=== PATIENT | male | born 1970 | race Caucasian/White ===

== ENCOUNTER 2018-07-12 09:02 | Emergency (ER) | payer SELFPAY ==
[2018-07-12] MEDS ORDERED: Dexamethasone 4 mg/ml Vial ONE (09:40)
== END 2018-07-12 09:53 | disposition home or self-care (01) ==
LOC: ERS 09:02
DX: J06.9 Acute upper respiratory infection, unspecified (principal); I10 Essential (primary) hypertension; F41.9 Anxiety disorder, unspecified; F32.9 Major depressive disorder, single episode, unspecified; F17.210 Nicotine dependence, cigarettes, uncomplicated; Z71.6 Tobacco abuse counseling
CPT/HCPCS: 87081; 87430; 99406; J1100

== ENCOUNTER 2021-12-11 10:36 | Emergency (ER) | payer OTHER ==
[~2021-12-11 10:36] MED LIST: Iopamidol-370 76% 500 ML 1 ML ONE
[2021-12-11 11:21] LABS: #Eosinphils 0.3 thou/uL (0.0-0.7); #Lymphocytes 2.4 thou/uL (1.20-3.40); #Neutrophils 11.3 thou/uL (1.40-6.50); %Basophils 0.2 % (0.0-1.0); %Eosinophils 1.7 % (0.0-10.0); %Lymphocytes 14.9 % (21.0-51.0); %Monocytes 12.5 % (0.0-10.0); %Neutrophils 70.7 % (42.0-75.0); Hemoglobin 13.1 g/dL (14.0-18.0); Mean Corpuscular HGB CONC 31.7 g/dL (32.0-36.0); Mean Corpuscular Hemoglobin 28.9 pg (27.0-31.0); Mean Corpuscular Volume 91.3 fL (78.0-98.0); Platelet Count 329 thou/uL (130-400); RBC Distribution Width 13.8 % (11.5-14.5); Red Blood Cell (RBC) Count 4.53 mill/uL (4.70-6.10); White Blood Cell (WBC) Count 15.9 thou/uL (4.8-10.8)
[2021-12-11 11:42] LABS: ALT (SGPT) 25 U/L (8-55); AST (SGOT) 16 U/L (5-34); Albumin 3.6 g/dL (3.5-5.0); Alkaline Phosphatase 147 U/L (40-110); Anion Gap 18 mmol/L (10-20); BUN (Urea Nitrogen) 9 mg/dL (8.9-20.6); Bilirubin, Total 0.5 mg/dL (0.2-1.2); Calc. Creatinine Clearance 0 mL/min (70-130); Calcium 9.3 mg/dL (7.8-10.44); Carbon Dioxide 20 mmol/L (22-29); Chloride 101 mmol/L (98-107); Globulin 3.9 g/dL (2.4-3.5); Glucose 93 mg/dL (70-105); Lipase 9 U/L (8-78); Potassium 4.3 mmol/L (3.5-5.1); Protein, Total 7.5 g/dL (6.0-8.3); Sodium 135 mmol/L (136-145)
[2021-12-11] MEDS ORDERED: Haloperidol Lactate 5 MG/ML VIAL ONE (12:30)
[2021-12-11] MEDS ORDERED: HYDROcodone/Acetaminophen 5/325 mg Tablet ONE (12:58)
== END 2021-12-11 13:04 | disposition home or self-care (01) ==
LOC: ERS 10:36
DX: J18.9 Pneumonia, unspecified organism (principal); R91.8 Other nonspecific abnormal finding of lung field; F17.210 Nicotine dependence, cigarettes, uncomplicated
CPT/HCPCS: 36415; 71045; 71260; 80053; 83605; 83690; 84484; 85025; 87040; 87077; 87149; 93005; 94760; 96374; J1630; Q9967

== ENCOUNTER 2022-02-02 13:20 | Inpatient (IN) | payer SELFPAY ==
[2022-02-02 14:12] LABS: White Blood Cell (WBC) Count 14.5 thou/uL (4.8-10.8)
[2022-02-02 14:13] LABS: #Eosinphils 0.1 thou/uL (0.0-0.7); #Lymphocytes 3.4 thou/uL (1.20-3.40); #Monocytes 1.6 thou/uL (0.11-0.59); #Neutrophils 9.3 thou/uL (1.40-6.50); %Eosinophils 0.9 % (0.0-10.0); %Lymphocytes 23.6 % (21.0-51.0); %Monocytes 11.2 % (0.0-10.0); %Neutrophils 64.2 % (42.0-75.0); Hemoglobin 12.3 g/dL (14.0-18.0); Mean Corpuscular HGB CONC 32.4 g/dL (32.0-36.0); Mean Corpuscular Hemoglobin 27.4 pg (27.0-31.0); Mean Corpuscular Volume 84.5 fL (78.0-98.0); Mean Platelet Volume 7.6 fL (7.4-10.4); Platelet Count 367 thou/uL (130-400); RBC Distribution Width 14.7 % (11.5-14.5)
[2022-02-02] MEDS ORDERED: Iopamidol-370 76% 500 ML 1 ML ONE (14:28)
[2022-02-02] MEDS ORDERED: Morphine 4 MG/ML VIAL ONE ×2 (14:36→19:22)
[2022-02-02] MEDS ORDERED: Ondansetron PF 4 MG/2 ML Vial ONE (14:37)
[2022-02-02] MEDS ORDERED: Aspirin Chewable 81 MG TAB ONE (14:37)
[2022-02-02 15:15] LABS: AST (SGOT) 11 U/L (5-34); Albumin 3.9 g/dL (3.5-5.0); Alkaline Phosphatase 110 U/L (40-110); Anion Gap 16 mmol/L (10-20); BUN (Urea Nitrogen) 9 mg/dL (8.9-20.6); Bilirubin, Total 0.5 mg/dL (0.2-1.2); Calc. Creatinine Clearance 0 mL/min (70-130); Carbon Dioxide 23 mmol/L (22-29); Chloride 102 mmol/L (98-107); Globulin 4.9 g/dL (2.4-3.5); Glucose 95 mg/dL (70-105); Potassium 4.4 mmol/L (3.5-5.1); Protein, Total 8.8 g/dL (6.0-8.3); Sodium 137 mmol/L (136-145)
[2022-02-02 15:16] LABS: ALT (SGPT) 9 U/L (8-55)
[2022-02-02 15:19] LABS: Calcium 13.2 mg/dL (7.8-10.44)
[2022-02-02 15:37] LABS: CK (CPK) 15 U/L (30-200); Lipase 5 U/L (8-78)
[2022-02-02] MEDS ORDERED: Dexamethasone 10 MG/ML VIAL ONE (19:22)
[2022-02-02] MEDS ORDERED: Ondansetron PF 4 MG/2 ML Vial IVP PRN (20:30)
[2022-02-02] MEDS ORDERED: Ondansetron ODT 4 MG TAB SL PRN (20:30)
[2022-02-02] MEDS ORDERED: Acetaminophen 325 MG TAB PO PRN (20:30)
[2022-02-02] MEDS ORDERED: Acetaminophen 650 MG Suppository PR PRN (20:54)
[2022-02-02] MEDS ORDERED: Zoledronic Acid 4 MG in Sodium Chloride 0.9% 100 ML IVPB SCH (21:00)
[2022-02-02] MEDS ORDERED: Piperacillin/Tazobactam 3.375 GM in Sodium Chloride 0.9% 100 ML IVPB SCH (22:00)
[2022-02-02] MEDS: Sodium Chloride 0.9% 1,000 ML IV SCH (22:31)
[2022-02-02] MEDS: Doxycycline 100 MG in Sodium Chloride 0.9% 100 ML IVPB SCH (22:31)
[2022-02-02 23:19] VITALS: BMI 25.0
[2022-02-02] MEDS: Morphine 4 MG/ML VIAL SLOW IVP PRN (23:42)
[2022-02-03] MEDS ORDERED: Piperacillin/Tazobactam 3.375 GM in Sodium Chloride 0.9% 100 ML IVPB SCH (02:00)
[2022-02-03 02:29] LABS: Bacteria/HPF None Seen HPF (None Seen); Bilirubin Negative (Negative); Blood, Urine Negative (Negative); Clarity Clear (Clear); Glucose, Urine (Dipstick) Normal (Negative); Ketone, Urine Negative (Negative); Leukocyte Negative Leu/uL (Negative); Nitrite Negative (Negative); Protein, Urine (Dipstick) Negative (Neg-Trace); RBC/HPF 0-3 HPF (0-3); Specific Gravity, Urine 1.011 (1.002-1.036); Squamous Epithelial 0-3 HPF (0-3); Urobilinogen Normal mg/dL (Less than 2); WBC/HPF 0-3 HPF (0-3)
[2022-02-03] MEDS: Morphine 4 MG/ML VIAL SLOW IVP PRN ×2 (04:22→22:18)
[2022-02-03] MEDS: Sodium Chloride 0.9% 1,000 ML IV SCH (05:20)
[2022-02-03] MEDS: Piperacillin/Tazobactam 3.375 GM in Sodium Chloride 0.9% 100 ML IVPB SCH ×2 (06:08→14:24)
[2022-02-03 06:31] LABS: #Lymphocytes 1.7 thou/uL (1.20-3.40); #Monocytes 0.7 thou/uL (0.11-0.59); #Neutrophils 8.1 thou/uL (1.40-6.50); %Basophils 0.4 % (0.0-1.0); %Eosinophils 0.1 % (0.0-10.0); %Lymphocytes 16.2 % (21.0-51.0); %Monocytes 6.2 % (0.0-10.0); Hemoglobin 10.5 g/dL (14.0-18.0); Mean Corpuscular HGB CONC 32.4 g/dL (32.0-36.0); Mean Corpuscular Hemoglobin 27.4 pg (27.0-31.0); Mean Corpuscular Volume 84.6 fL (78.0-98.0); Mean Platelet Volume 7.8 fL (7.4-10.4); Platelet Count 330 thou/uL (130-400); RBC Distribution Width 14.5 % (11.5-14.5); Red Blood Cell (RBC) Count 3.83 mill/uL (4.70-6.10); White Blood Cell (WBC) Count 10.5 thou/uL (4.8-10.8)
[2022-02-03 06:49] LABS: Anion Gap 10 mmol/L (10-20); BUN (Urea Nitrogen) 8 mg/dL (8.9-20.6); Calc. Creatinine Clearance 134 mL/min (70-130); Calcium 11.9 mg/dL (7.8-10.44); Carbon Dioxide 25 mmol/L (22-29); Chloride 103 mmol/L (98-107); Glucose 127 mg/dL (70-105); Potassium 4.3 mmol/L (3.5-5.1); Sodium 134 mmol/L (136-145)
[2022-02-03] MEDS ORDERED: Ondansetron PF 4 MG/2 ML Vial IVP PRN (08:07)
[2022-02-03 09:19] LABS: HIV (1/2) Antibody/Antigen Non-Reactive (NonReactive)
[2022-02-03] MEDS: methylPREDNISolone Sod Succ 40 MG VIAL IVP SCH (11:20)
[2022-02-03] MEDS: Doxycycline 100 MG in Sodium Chloride 0.9% 100 ML IVPB SCH (11:25)
[2022-02-03] MEDS: Enoxaparin Sodium 40 MG/0.4 ML SYRINGE SC SCH (11:26)
[2022-02-03 11:56] LABS: SARS-CoV-2 PCR by NAA Not Detected (NotDetected)
[2022-02-03] MEDS ORDERED: methylPREDNISolone Sod Succ/PF 125 MG/2 ML VIAL IVP SCH (14:45)
[2022-02-03] MEDS: Amoxicillin/Potassium Clav 875 MG TAB PO SCH (20:23)
[2022-02-04] MEDS: Amoxicillin/Potassium Clav 875 MG TAB PO SCH ×2 (10:18→21:26)
[2022-02-04] MEDS: methylPREDNISolone Sod Succ 40 MG VIAL IVP SCH (10:19)
[2022-02-04] MEDS: Enoxaparin Sodium 40 MG/0.4 ML SYRINGE SC SCH (10:19)
[2022-02-04] MEDS: Morphine 4 MG/ML VIAL SLOW IVP PRN (21:26)
[2022-02-05] MEDS: Amoxicillin/Potassium Clav 875 MG TAB PO SCH ×2 (10:23→20:50)
[2022-02-05] MEDS: Enoxaparin Sodium 40 MG/0.4 ML SYRINGE SC SCH (10:24)
[2022-02-05] MEDS: methylPREDNISolone Sod Succ 40 MG VIAL IVP SCH (10:24)
[2022-02-05] MEDS ORDERED: Morphine 2 MG/ML VIAL SLOW IVP PRN ×2 (20:54)
[2022-02-06] MEDS: Enoxaparin Sodium 40 MG/0.4 ML SYRINGE SC SCH (07:43)
[2022-02-06] MEDS: Amoxicillin/Potassium Clav 875 MG TAB PO SCH ×2 (07:57→20:31)
[2022-02-06] MEDS: methylPREDNISolone Sod Succ 40 MG VIAL IVP SCH (08:12)
[2022-02-06] MEDS ORDERED: ceFAZolin (BATCH) 2 GM/100 ML BAG ONE (11:31)
[2022-02-06] MEDS ORDERED: fentaNYL Citrate/PF 100 MCG/2 ML SYRINGE ONE (11:31)
[2022-02-06] MEDS ORDERED: Midazolam HCl 2 mg/2 ml Vial ONE (11:49)
[2022-02-06] MEDS ORDERED: PROPOFOL 200 MG/20 ML VIAL ONE (11:59)
[2022-02-06] MEDS ORDERED: Glycopyrrolate 0.2 MG/ML 5 ML SYRINGE ONE (11:59)
[2022-02-06] MEDS ORDERED: Rocuronium Bromide 10 MG/ML (10ML VIAL) ONE (11:59)
[2022-02-06] MEDS ORDERED: Lidocaine 1% PF 5 ML VIAL ONE (11:59)
[2022-02-06] MEDS ORDERED: Dexamethasone 20 MG/5 ML VIAL ONE (11:59)
[2022-02-06] MEDS ORDERED: Ondansetron PF 4 MG/2 ML Vial ONE (11:59)
[2022-02-06] MEDS ORDERED: EPINEPHrine 1 MG/10 ML Abboject SYRINGE ONE (12:46)
[2022-02-06] MEDS ORDERED: SUGAMMADEX SODIUM 200 MG/2 ML VIAL ONE (13:07)
[2022-02-06] MEDS ORDERED: Labetalol HCl 100 MG/20 ML VIAL ONE (13:15)
[2022-02-06] MEDS ORDERED: Amiodarone 450 MG in Dextrose 5% in Water 250 ML IVPB SCH (14:45)
[2022-02-06] MEDS ORDERED: ALPRAZolam 1 MG TAB PO PRN (17:13)
[2022-02-06] MEDS: Morphine 4 MG/ML VIAL SLOW IVP PRN ×2 (20:28→23:56)
[2022-02-07] MEDS: Morphine 4 MG/ML VIAL SLOW IVP PRN ×4 (04:03→20:06)
[2022-02-07] MEDS ORDERED: HYDROcodone/Acetaminophen 5/325 mg Tablet PO PRN (06:17)
[2022-02-07] MEDS: Amoxicillin/Potassium Clav 875 MG TAB PO SCH ×2 (07:37→20:07)
[2022-02-07] MEDS: HYDROcodone/Acetaminophen 5/325 mg Tablet PO PRN ×2 (07:37→11:44)
[2022-02-07] MEDS: Enoxaparin Sodium 40 MG/0.4 ML SYRINGE SC SCH (07:37)
[2022-02-07] MEDS: methylPREDNISolone Sod Succ 40 MG VIAL IVP SCH (07:38)
[2022-02-07] MEDS ORDERED: Docusate 100 MG CAP PO SCH (20:18)
[2022-02-08] MEDS: Morphine 4 MG/ML VIAL SLOW IVP PRN ×2 (03:03→08:47)
[2022-02-08] MEDS: HYDROcodone/Acetaminophen 5/325 mg Tablet PO PRN (04:47)
[2022-02-08] MEDS: Enoxaparin Sodium 40 MG/0.4 ML SYRINGE SC SCH (08:47)
[2022-02-08] MEDS: Amoxicillin/Potassium Clav 875 MG TAB PO SCH ×2 (08:47→21:59)
[2022-02-08] MEDS: methylPREDNISolone Sod Succ 40 MG VIAL IVP SCH (08:48)
[2022-02-08] MEDS ORDERED: Polyethylene Glycol 3350 17 GM Packet PO PRN (20:57)
[2022-02-08] MEDS ORDERED: Docusate Sodium 10 MG/1 ML Oral Suspension PO PRN (21:58)
[2022-02-09] MEDS ORDERED: Acetaminophen 325 MG TAB PO PRN (00:49)
[2022-02-09] MEDS ORDERED: guaiFENesin/DM ER PO PRN (00:50)
[2022-02-09 04:58] LABS: Anion Gap 11 mmol/L (10-20); BUN (Urea Nitrogen) 15 mg/dL (8.9-20.6); Calc. Creatinine Clearance 170 mL/min (70-130); Calcium 8.6 mg/dL (7.8-10.44); Carbon Dioxide 25 mmol/L (22-29); Chloride 106 mmol/L (98-107); Glucose 88 mg/dL (70-105); Sodium 138 mmol/L (136-145)
[2022-02-09 05:10] LABS: Hemoglobin 10.6 g/dL (14.0-18.0); Lymphocytes 29 % (21-51); MDiff Complete? YES; Mean Corpuscular HGB CONC 32.2 g/dL (32.0-36.0); Mean Corpuscular Hemoglobin 27.6 pg (27.0-31.0); Mean Corpuscular Volume 85.7 fL (78.0-98.0); Metamyelocyte 2 % (0-0); Monocytes 10 % (0-10); Myelocyte 1 % (0-0); Neutrophil 58 % (42-75); Platelet Count 315 thou/uL (130-400); Platelet Morphology Comment Appears Adequate; RBC Distribution Width 16.1 % (11.5-14.5); RBC Morphology Normal; Red Blood Cell (RBC) Count 3.83 mill/uL (4.70-6.10); White Blood Cell (WBC) Count 22.8 thou/uL (4.8-10.8)
[2022-02-09] MEDS: Enoxaparin Sodium 40 MG/0.4 ML SYRINGE SC SCH (09:03)
[2022-02-09] MEDS: methylPREDNISolone Sod Succ 40 MG VIAL IVP SCH (09:03)
[2022-02-09] MEDS: Amoxicillin/Potassium Clav 875 MG TAB PO SCH (09:03)
[2022-02-09 13:03] VITALS: BP 100/57; TEMP 98.4
== END 2022-02-09 12:45 | disposition home or self-care (01) | DRG 180 ==
LOC: EEVIPCON 13:20 → ERS 13:20 → T4-A 19:19 → 2NO 02-06 14:51
PROVIDERS: ADMIT Internal Medicine; ATTEND Internal Medicine
PROC: 0BB78ZX Excision of Left Main Bronchus, Via Natural or Artificial Opening Endoscopic, Diagnostic (ICD-10-PCS; principal; 2022-02-06)
PROC: 0B978ZZ Drainage of Left Main Bronchus, Via Natural or Artificial Opening Endoscopic (ICD-10-PCS; 2022-02-06)
PROC: 0W9B30Z Drainage of Left Pleural Cavity with Drainage Device, Percutaneous Approach (ICD-10-PCS; 2022-02-06)
PROC: 0BJ08ZZ Inspection of Tracheobronchial Tree, Via Natural or Artificial Opening Endoscopic (ICD-10-PCS; 2022-02-06)
DX: C34.02 Malignant neoplasm of left main bronchus (principal); J18.9 Pneumonia, unspecified organism; J44.1 Chronic obstructive pulmonary disease with (acute) exacerbation; J90 Pleural effusion, not elsewhere classified; J44.0 Chronic obstructive pulmonary disease with (acute) lower respiratory infection; E87.1 Hypo-osmolality and hyponatremia; Z20.822 Contact with and (suspected) exposure to COVID-19; F41.9 Anxiety disorder, unspecified; F32.A Depression, unspecified; F12.10 Cannabis abuse, uncomplicated; F17.210 Nicotine dependence, cigarettes, uncomplicated; E83.52 Hypercalcemia; E86.0 Dehydration; E11.9 Type 2 diabetes mellitus without complications; D64.9 Anemia, unspecified; I48.0 Paroxysmal atrial fibrillation; Z90.09 Acquired absence of other part of head and neck; Z98.890 Other specified postprocedural states; Z88.6 Allergy status to analgesic agent; Z79.51 Long term (current) use of inhaled steroids
CPT/HCPCS: 36415; 71045; 71260; 80048; 80053; 81001; 82550; 83690; 83880; 84484; 85025; 87389; 88112; 88305; 88341; 88342; 93005; 93010; 93306; 94640; 96374; 96375; 96376; J0171; J0690; J1100; J1650; J2250; J2270; J2405; J2543; J2704; J2920; J2930; J3489; J3490; J7050; J7620; Q9967; U0003; U0005

== ENCOUNTER 2022-04-10 13:09 | Inpatient (IN) | payer BC, SELFPAY ==
[~2022-04-10 13:09] MED LIST changes: +ISOVUE-370 76%-LOCM 1 ML ONE; -Iopamidol-370 76% 500 ML 1 ML ONE
[2022-04-10] MEDS ORDERED: Ondansetron PF 4 MG/2 ML Vial ONE (14:07)
[2022-04-10] MEDS ORDERED: Morphine 4 MG/ML VIAL ONE (14:07)
[2022-04-10 14:20] LABS: #Eosinphils 0.3 thou/uL (0.0-0.7); #Lymphocytes 2.4 thou/uL (1.20-3.40); #Monocytes 1.2 thou/uL (0.11-0.59); #Neutrophils 9.1 thou/uL (1.40-6.50); %Basophils 0.4 % (0.0-1.0); %Eosinophils 2.6 % (0.0-10.0); %Lymphocytes 18.5 % (21.0-51.0); %Monocytes 9.1 % (0.0-10.0); %Neutrophils 69.4 % (42.0-75.0); Hemoglobin 12.9 g/dL (14.0-18.0); Mean Corpuscular HGB CONC 31.7 g/dL (32.0-36.0); Mean Corpuscular Hemoglobin 28.9 pg (27.0-31.0); Mean Corpuscular Volume 91.2 fL (78.0-98.0); Mean Platelet Volume 8.5 fL (7.4-10.4); Platelet Count 298 thou/uL (130-400); RBC Distribution Width 15.9 % (11.5-14.5); Red Blood Cell (RBC) Count 4.47 mill/uL (4.70-6.10)
[2022-04-10 14:47] LABS: ALT (SGPT) 14 U/L (8-55); AST (SGOT) 10 U/L (5-34); Albumin 3.8 g/dL (3.5-5.0); Alkaline Phosphatase 97 U/L (40-110); Anion Gap 13 mmol/L (10-20); BUN (Urea Nitrogen) 11 mg/dL (8.9-20.6); Bilirubin, Total 0.2 mg/dL (0.2-1.2); CK (CPK) 18 U/L (30-200); Calc. Creatinine Clearance 0 mL/min (70-130); Carbon Dioxide 25 mmol/L (22-29); Chloride 103 mmol/L (98-107); Estimated GFR 110; Globulin 4.4 g/dL (2.4-3.5); Glucose 122 mg/dL (70-105); Potassium 3.8 mmol/L (3.5-5.1); Protein, Total 8.2 g/dL (6.0-8.3); Sodium 137 mmol/L (136-145)
[2022-04-10 14:54] LABS: Calcium 12.5 mg/dL (7.8-10.44)
[2022-04-10] MEDS ORDERED: Vancomycin 1 GM/200 ML BAG ONE (15:05)
[2022-04-10] MEDS ORDERED: Piperacillin/Tazobactam 4.5 GM VIAL ONE (15:05)
[2022-04-10 15:24] LABS: Bilirubin Negative (Negative); Blood, Urine Negative (Negative); Clarity Clear (Clear); Glucose, Urine (Dipstick) Normal (Negative); Ketone, Urine Negative (Negative); Leukocyte Negative Leu/uL (Negative); Nitrite Negative (Negative); Protein, Urine (Dipstick) Negative (Neg-Trace); Specific Gravity, Urine 1.014 (1.002-1.036); Urobilinogen Normal mg/dL (Less than 2); pH, Urine 6.5 (5.0-9.0)
[2022-04-10] MEDS ORDERED: Acetaminophen 325 MG TAB PO PRN (15:45)
[2022-04-10] MEDS ORDERED: Zoledronic Acid 4 MG in Sodium Chloride 0.9% 100 ML IVPB SCH (17:00)
[2022-04-10] MEDS: Morphine 2 MG/ML VIAL SLOW IVP PRN ×2 (18:18→22:33)
[2022-04-10] MEDS: Nicotine 14 MG PATCH TD SCH (18:39)
[2022-04-10] MEDS: Sodium Chloride 0.9% 1,000 ML IV SCH (20:16)
[2022-04-10] MEDS: HYDROcodone/Acetaminophen 5/325 mg Tablet PO PRN (20:21)
[2022-04-10] MEDS: Famotidine/PF 20 mg/2ml Vial SLOW IVP SCH (20:33)
[2022-04-10] MEDS: Promethazine HCl 12.5 MG in Sodium Chloride 0.9% 50 ML IVPB PRN (20:39)
[2022-04-10 20:57] VITALS: BMI 25.7
[2022-04-11] MEDS: HYDROcodone/Acetaminophen 5/325 mg Tablet PO PRN ×4 (01:28→14:03)
[2022-04-11] MEDS: Morphine 2 MG/ML VIAL SLOW IVP PRN ×5 (02:43→19:29)
[2022-04-11 05:30] LABS: #Eosinphils 0.3 thou/uL (0.0-0.7); #Lymphocytes 2.7 thou/uL (1.20-3.40); #Monocytes 1.8 thou/uL (0.11-0.59); #Neutrophils 8.6 thou/uL (1.40-6.50); %Basophils 0.4 % (0.0-1.0); %Eosinophils 2.4 % (0.0-10.0); %Lymphocytes 20.2 % (21.0-51.0); %Monocytes 13.4 % (0.0-10.0); %Neutrophils 63.7 % (42.0-75.0); Hemoglobin 12.5 g/dL (14.0-18.0); Mean Corpuscular HGB CONC 31.3 g/dL (32.0-36.0); Mean Corpuscular Hemoglobin 28.5 pg (27.0-31.0); Mean Corpuscular Volume 90.8 fL (78.0-98.0); Mean Platelet Volume 8.2 fL (7.4-10.4); Platelet Count 281 thou/uL (130-400); RBC Distribution Width 15.9 % (11.5-14.5); Red Blood Cell (RBC) Count 4.38 mill/uL (4.70-6.10); White Blood Cell (WBC) Count 13.6 thou/uL (4.8-10.8)
[2022-04-11 05:51] LABS: Anion Gap 11 mmol/L (10-20); BUN (Urea Nitrogen) 8 mg/dL (8.9-20.6); Calc. Creatinine Clearance 151 mL/min (70-130); Calcium 11.9 mg/dL (7.8-10.44); Carbon Dioxide 25 mmol/L (22-29); Chloride 105 mmol/L (98-107); Estimated GFR 112; Glucose 91 mg/dL (70-105); Potassium 4.4 mmol/L (3.5-5.1); Sodium 137 mmol/L (136-145)
[2022-04-11] MEDS: Famotidine/PF 20 mg/2ml Vial SLOW IVP SCH (08:40)
[2022-04-11] MEDS: Sodium Chloride 0.9% 1,000 ML IV SCH ×3 (08:41→23:28)
[2022-04-11] MEDS ORDERED: Prevnar 13-Val Conj/PF 0.5 ML SYRINGE IM ONE (09:00)
[2022-04-11 10:11] LABS: Hemoglobin A1c 5.1 % (4.0-6.0)
[2022-04-11] MEDS: Nicotine 14 MG PATCH TD SCH (16:45)
[2022-04-11] MEDS ORDERED: Meropenem 1 GM in Sodium Chloride 0.9% 100 ML IVPB SCH ×2 (17:00→22:00)
[2022-04-11] MEDS: oxyCODONE 5 MG TAB PO SCH ×2 (17:42→23:23)
[2022-04-11] MEDS: Famotidine 20 MG TAB PO SCH (20:38)
[2022-04-12] MEDS: Meropenem 1 GM in Sodium Chloride 0.9% 100 ML IVPB SCH ×2 (00:24→08:34)
[2022-04-12] MEDS: Morphine 2 MG/ML VIAL SLOW IVP PRN ×3 (01:45→14:25)
[2022-04-12] MEDS: Promethazine HCl 12.5 MG in Sodium Chloride 0.9% 50 ML IVPB PRN (01:54)
[2022-04-12] MEDS: oxyCODONE 5 MG TAB PO SCH ×2 (05:39→11:56)
[2022-04-12] MEDS: Sodium Chloride 0.9% 1,000 ML IV SCH (07:36)
[2022-04-12] MEDS ORDERED: Dexamethasone 4 MG TAB PO SCH (08:00)
[2022-04-12] MEDS: Famotidine 20 MG TAB PO SCH (08:07)
[2022-04-12 08:26] VITALS: BP 113/81; TEMP 98.2
== END 2022-04-12 17:05 | disposition home or self-care (01) | DRG 871 ==
LOC: ERS 13:09 → MSONC 15:32
PROVIDERS: ADMIT Internal Medicine; ATTEND Internal Medicine
DX: A41.9 Sepsis, unspecified organism (principal); J86.0 Pyothorax with fistula; J18.9 Pneumonia, unspecified organism; R04.2 Hemoptysis; J91.0 Malignant pleural effusion; C34.02 Malignant neoplasm of left main bronchus; E83.52 Hypercalcemia; F17.210 Nicotine dependence, cigarettes, uncomplicated; D64.9 Anemia, unspecified; E11.9 Type 2 diabetes mellitus without complications; F41.9 Anxiety disorder, unspecified; I10 Essential (primary) hypertension; I48.91 Unspecified atrial fibrillation; Z28.21 Immunization not carried out because of patient refusal; Z88.8 Allergy status to other drugs, medicaments and biological substances; Z79.899 Other long term (current) drug therapy; Z79.52 Long term (current) use of systemic steroids; Z90.89 Acquired absence of other organs
CPT/HCPCS: 36415; 70450; 71045; 71275; 80048; 80053; 81003; 82550; 83036; 83605; 85025; 87040; 87086; 93005; 96365; 96375; J1956; J2185; J2270; J2405; J2543; J2550; J3370; J3489; J3490; J7050; J8540; Q9966; S0028

== ENCOUNTER 2022-04-28 08:00 | Outpatient (CLI) | payer BC | END 2022-04-28 08:01 | disposition home or self-care (01) | LOC: PET 08:00 | PROVIDERS: ATTEND Internal Medicine Hematology & Oncology | DX: C34.02 Malignant neoplasm of left main bronchus (principal) | CPT/HCPCS: 78815; A9552 ==

== ENCOUNTER 2022-05-03 12:44 | Outpatient (CLI) | payer BC | END 2022-05-03 12:45 | disposition home or self-care (01) | LOC: SCSMRI 12:44 | PROVIDERS: ATTEND Internal Medicine Hematology & Oncology | DX: C34.02 Malignant neoplasm of left main bronchus (principal) | CPT/HCPCS: 70553 ==

== ENCOUNTER 2022-05-09 08:03 | Inpatient (IN) | payer BC ==
[2022-05-09 08:50] LABS: Hemoglobin 13.4 g/dL (14.0-18.0); Mean Corpuscular HGB CONC 33.7 g/dL (32.0-36.0); Mean Corpuscular Hemoglobin 29.2 pg (27.0-31.0); Mean Corpuscular Volume 86.7 fL (78.0-98.0); Mean Platelet Volume 9.1 fL (7.4-10.4); Platelet Count 264 thou/uL (130-400); RBC Distribution Width 14.5 % (11.5-14.5); Red Blood Cell (RBC) Count 4.59 mill/uL (4.70-6.10); White Blood Cell (WBC) Count 24.6 thou/uL (4.8-10.8)
[2022-05-09] MEDS ORDERED: Sodium Chloride 0.9% 100 ML ONE (08:58)
[2022-05-09] MEDS ORDERED: Cefepime 2 GM VIAL ONE (08:58)
[2022-05-09] MEDS ORDERED: Vancomycin 1 GM/200 ML BAG ONE (08:59)
[2022-05-09] MEDS ORDERED: Ondansetron PF 4 MG/2 ML Vial ONE (09:00)
[2022-05-09 09:21] LABS: Bilirubin Negative (Negative); Blood, Urine Negative (Negative); Clarity Clear (Clear); Glucose, Urine (Dipstick) Normal (Negative); Ketone, Urine Negative (Negative); Leukocyte Negative Leu/uL (Negative); Nitrite Negative (Negative); Protein, Urine (Dipstick) Negative (Neg-Trace); Specific Gravity, Urine 1.016 (1.002-1.036); Urobilinogen Normal mg/dL (Less than 2); pH, Urine 7.5 (5.0-9.0)
[2022-05-09 09:23] LABS: Band 23 % (5-11); Lymphocytes 14 % (21-51); MDiff Complete? YES; Monocytes 13 % (0-10); Neutrophil 50 % (42-75); Platelet Morphology Comment Appears Adequate; Polychromasia SLIGHT = 2-3 cells (100X) (0-2/hpf)
[2022-05-09] MEDS ORDERED: Morphine 4 MG/ML VIAL ONE ×2 (09:24→11:30)
[2022-05-09] MEDS ORDERED: VANCOMYCIN 2 GRAM/500 ML BAG 2 GM in Premix Bag 1 BAG IVPB SCH (09:30)
[2022-05-09 10:39] LABS: SARS-CoV-2 NAA Rapid Test DETECTED (NotDetected)
[2022-05-09] MEDS ORDERED: Aspirin Chewable 81 MG TAB ONE (10:49)
[2022-05-09 11:19] LABS: ALT (SGPT) 18 U/L (8-55); AST (SGOT) 14 U/L (5-34); Albumin 3.4 g/dL (3.5-5.0); Alkaline Phosphatase 96 U/L (40-110); Anion Gap 16 mmol/L (10-20); BUN (Urea Nitrogen) 9 mg/dL (8.9-20.6); Bilirubin, Total 0.5 mg/dL (0.2-1.2); Calc. Creatinine Clearance 0 mL/min (70-130); Calcium 10.5 mg/dL (7.8-10.44); Carbon Dioxide 16 mmol/L (22-29); Chloride 106 mmol/L (98-107); Estimated GFR 113; Globulin 4.1 g/dL (2.4-3.5); Glucose 136 mg/dL (70-105); Potassium 3.4 mmol/L (3.5-5.1); Protein, Total 7.5 g/dL (6.0-8.3); Sodium 135 mmol/L (136-145)
[2022-05-09] MEDS ORDERED: Metoclopramide HCl 10 MG/2 ML VIAL IVP PRN (11:45)
[2022-05-09] MEDS ORDERED: Ondansetron ODT 4 MG TAB PO PRN (11:45)
[2022-05-09] MEDS ORDERED: Acetaminophen 325 MG TAB PO PRN (11:45)
[2022-05-09 12:16] LABS: Lactic Acid 1.5 mmol/L (0.5-2.2)
[2022-05-09 12:24] LABS: Troponin I 0.013 ng/mL (< 0.028)
[2022-05-09 12:45] VITALS: BMI 25.9
[2022-05-09] MEDS: Morphine 2 MG/ML VIAL SLOW IVP PRN ×2 (14:57→19:01)
[2022-05-09 16:08] LABS: Troponin I 0.012 ng/mL (< 0.028)
[2022-05-09] MEDS: HYDROcodone/Acetaminophen 5/325 mg Tablet PO PRN ×2 (17:41→22:07)
[2022-05-09] MEDS: Cefepime 1 GM in Sodium Chloride 0.9% 100 ML IVPB SCH (20:18)
[2022-05-09] MEDS: Vancomycin 1 GM in Premix Bag 1 BAG IVPB SCH (20:59)
[2022-05-10] MEDS: Morphine 2 MG/ML VIAL SLOW IVP PRN ×4 (00:14→23:33)
[2022-05-10] MEDS: HYDROcodone/Acetaminophen 5/325 mg Tablet PO PRN ×2 (02:30→12:30)
[2022-05-10] MEDS ORDERED: oxyCODONE 5 MG TAB PO PRN ×2 (08:12→08:34)
[2022-05-10] MEDS ORDERED: Enoxaparin Sodium 40 MG/0.4 ML SYRINGE SC SCH (09:00)
[2022-05-10] MEDS ORDERED: clonazePAM 0.5 MG TAB PO PRN (09:28)
[2022-05-10] MEDS ORDERED: Sodium Chloride 0.9% 1,000 ML IV SCH (09:30)
[2022-05-10 09:54] LABS: #Lymphocytes 2.3 thou/uL (1.20-3.40); #Monocytes 2.4 thou/uL (0.11-0.59); #Neutrophils 16.9 thou/uL (1.40-6.50); %Eosinophils 0.2 % (0.0-10.0); %Lymphocytes 10.6 % (21.0-51.0); %Neutrophils 78.2 % (42.0-75.0); Hemoglobin 13.2 g/dL (14.0-18.0); Mean Corpuscular HGB CONC 31.2 g/dL (32.0-36.0); Mean Corpuscular Hemoglobin 26.9 pg (27.0-31.0); Mean Corpuscular Volume 86.2 fL (78.0-98.0); Platelet Count 318 thou/uL (130-400); RBC Distribution Width 14.6 % (11.5-14.5); Red Blood Cell (RBC) Count 4.91 mill/uL (4.70-6.10); White Blood Cell (WBC) Count 21.6 thou/uL (4.8-10.8)
[2022-05-10 10:04] LABS: Anion Gap 15 mmol/L (10-20); BUN (Urea Nitrogen) 12 mg/dL (8.9-20.6); Calc. Creatinine Clearance 153 mL/min (70-130); Carbon Dioxide 23 mmol/L (22-29); Chloride 104 mmol/L (98-107); Estimated GFR 112; Glucose 106 mg/dL (70-105); Potassium 3.4 mmol/L (3.5-5.1); Sodium 139 mmol/L (136-145)
[2022-05-10] MEDS: Cefepime 1 GM in Sodium Chloride 0.9% 100 ML IVPB SCH (10:13)
[2022-05-10] MEDS: Vancomycin 1 GM in Premix Bag 1 BAG IVPB SCH ×2 (10:16→19:35)
[2022-05-10] MEDS: methylPREDNISolone Sod Succ 40 MG VIAL IVP SCH ×3 (12:30→23:34)
[2022-05-10] MEDS ORDERED: Dronabinol 2.5 MG CAP PO SCH (16:30)
[2022-05-10] MEDS: Ondansetron PF 4 MG/2 ML Vial IVP PRN (19:35)
[2022-05-10] MEDS ORDERED: Albuterol 200 PUFF (6.7GM INHALER) INH PRN (20:04)
[2022-05-10] MEDS ORDERED: Ondansetron ODT 4 MG TAB PO PRN (20:06)
[2022-05-10] MEDS ORDERED: Docusate 100 MG CAP PO PRN (20:24)
[2022-05-10] MEDS ORDERED: Cefepime 2 GM in Sodium Chloride 0.9% 100 ML IVPB SCH (21:00)
[2022-05-11 02:27] LABS: Amphetamine Not Detected (NotDetected); Barbiturates Screen Not Detected (NotDetected); Benzodiazepine Screen Not Detected (NotDetected); Cocaine Metabolite Screen Not Detected (NotDetected); Methadone Not Detected (NotDetected); Methamphetamine Not Detected (NotDetected); Opiate Screen Not Detected (NotDetected); Oxycodone Screen Detected (NotDetected); Phencyclidine (PCP) Not Detected (NotDetected); THC/Cannabinoid Screen Detected (NotDetected); Tricyclic Screen Detected (NotDetected)
[2022-05-11] MEDS: Morphine 2 MG/ML VIAL SLOW IVP PRN (04:04)
[2022-05-11] MEDS: Ondansetron PF 4 MG/2 ML Vial IVP PRN (04:04)
[2022-05-11 05:01] LABS: #Lymphocytes 1.9 thou/uL (1.20-3.40); #Monocytes 0.7 thou/uL (0.11-0.59); #Neutrophils 16.9 thou/uL (1.40-6.50); %Eosinophils 0.1 % (0.0-10.0); %Lymphocytes 9.8 % (21.0-51.0); %Monocytes 3.7 % (0.0-10.0); %Neutrophils 86.4 % (42.0-75.0); Hemoglobin 12.4 g/dL (14.0-18.0); Mean Corpuscular HGB CONC 32.2 g/dL (32.0-36.0); Mean Corpuscular Volume 86.9 fL (78.0-98.0); Mean Platelet Volume 8.9 fL (7.4-10.4); Platelet Count 300 thou/uL (130-400); RBC Distribution Width 14.4 % (11.5-14.5); Red Blood Cell (RBC) Count 4.43 mill/uL (4.70-6.10); White Blood Cell (WBC) Count 19.5 thou/uL (4.8-10.8)
[2022-05-11 05:14] LABS: Anion Gap 16 mmol/L (10-20); BUN (Urea Nitrogen) 18 mg/dL (8.9-20.6); Calc. Creatinine Clearance 162 mL/min (70-130); Calcium 10.9 mg/dL (7.8-10.44); Carbon Dioxide 22 mmol/L (22-29); Chloride 104 mmol/L (98-107); Estimated GFR 114; Glucose 139 mg/dL (70-105); Potassium 3.7 mmol/L (3.5-5.1); Sodium 138 mmol/L (136-145)
[2022-05-11] MEDS: methylPREDNISolone Sod Succ 40 MG VIAL IVP SCH (05:42)
[2022-05-11 07:58] VITALS: BP 133/67; TEMP 97.9
== END 2022-05-11 09:01 | disposition left against medical advice (07) | DRG 871 ==
LOC: ERS 08:03 → 2SW 11:45
PROVIDERS: ADMIT Hospitalist; ATTEND Hospitalist
PROC: 3E03329 Introduction of Other Anti-infective into Peripheral Vein, Percutaneous Approach (ICD-10-PCS; principal; 2022-05-09)
PROC: 8E0ZXY6 Isolation (ICD-10-PCS; 2022-05-09)
DX: A41.9 Sepsis, unspecified organism (principal); U07.1 COVID-19; J12.82 Pneumonia due to coronavirus disease 2019; J96.01 Acute respiratory failure with hypoxia; J18.9 Pneumonia, unspecified organism; J44.1 Chronic obstructive pulmonary disease with (acute) exacerbation; J44.0 Chronic obstructive pulmonary disease with (acute) lower respiratory infection; C34.90 Malignant neoplasm of unspecified part of unspecified bronchus or lung; F17.210 Nicotine dependence, cigarettes, uncomplicated; F41.1 Generalized anxiety disorder; Y95 Nosocomial condition; F41.9 Anxiety disorder, unspecified; F32.A Depression, unspecified; Z28.310 Unvaccinated for COVID-19; Z79.899 Other long term (current) drug therapy; Z90.89 Acquired absence of other organs; Z88.8 Allergy status to other drugs, medicaments and biological substances; Z80.1 Family history of malignant neoplasm of trachea, bronchus and lung; Z80.8 Family history of malignant neoplasm of other organs or systems
CPT/HCPCS: 36415; 71045; 80048; 80053; 80306; 81003; 83605; 83880; 84484; 85025; 87040; 87086; 93005; 94760; 96365; 96366; 96367; 96375; 96376; J0692; J1642; J1956; J2270; J2405; J2765; J2920; J3370; J3490; J7050; J7620; U0002